=== PATIENT | female | born 1965 | race Caucasian/White ===

== ENCOUNTER 2017-10-22 14:07 | Emergency (ER) | payer SELFPAY ==
[~2017-10-22] VITALS: Ht 177.8 cm; Wt 71.0 kg
[~2017-10-22 14:07] MED LIST: ASCO100T4 PO; CHOL400T PO; GLUC1TAB8 PO; MULT-506 PO; OMEG10007 PO; PARO10TA PO; VITA1TAB4 PO
[2017-10-22 14:13] VITALS: TEMP 36.8; Ht 177.8 cm; Wt 71.0 kg
[2017-10-22] MEDS ORDERED: SODIUM CHLORIDE 0.9% 1000ML 2,000 ML IV STA (14:50)
[2017-10-22] MEDS ORDERED: DiphenhydrAMINE HCL 50 MG/ML VIAL IV STA (14:50)
[2017-10-22] MEDS ORDERED: PROCHLORPERAZINE 5 MG/ML 2 ML VIAL IV STA (14:50)
[2017-10-22] MEDS ORDERED: FAMOTIDINE 20 MG TAB PO ONE (15:00)
[2017-10-22 15:07] LABS: CALCIUM 9.2 mg/dl (8.5-10.1); CREATININE 0.92 mg/dl (0.60-1.20); POTASSIUM 3.5 mmol/L (3.5-5.1)
[2017-10-22 15:10] LABS: TOTAL PROTEIN 8.2 gm/dl (6.4-8.2)
--- NOTE | 2017-10-22 15:10 | DIAGNOSTIC IMAGING REPORT ---
CHEST ONE VIEW PORTABLE CLINICAL HISTORY: Abdominal pain. Hematemesis. COMPARISON STUDY: Chest radiograph July 2015. FINDINGS: Lung volumes are normal. No pneumothorax or pleural effusion is noted. There is no evidence for pulmonary edema. There is no consolidation. Cardiac size is normal. Mediastinal contours are normal. There is no lucency under the hemidiaphragms to indicate pneumoperitoneum on this exam. IMPRESSION: No acute cardiopulmonary findings. Electronically signed by: Cody Mackenzie M.D. 10/22/2017 3:09 PM Dictated Date/Time: 10/22/2017 3:08 PM
[2017-10-22 15:13] LABS: BASO % 0.1 %; BASO ABS # 0.01 K/uL (0-0.2); HEMATOCRIT 40.5 % (37-47); HEMOGLOBIN 13.8 g/dL (12.0-16.0); IG# 0.02 K/uL (0.00-0.02); LYMPH % 10.1 %; LYMPH ABS # 1.03 K/uL (1.2-3.4); MEAN CELL VOLUME 85.1 fL (80-100); MEAN CORPUSCULAR HGB CONC 34.1 g/dl (32-36); MEAN PLATELET VOLUME 9.5 fL (7.4-10.4); MONO % 3.8 %; MONO ABS # 0.39 K/uL (0.11-0.59); NEUT % 85.8 %; NEUT ABS # 8.75 K/uL (1.4-6.5); PLATELET COUNT 299 K/uL (130-400); RED CELL DISTRIBUTION WIDTH CV 13.6 % (11.5-14.5); RED CELL DISTRIBUTION WIDTH SD 42.2 fL (36.4-46.3)
[2017-10-22] MEDS ORDERED: MISCTAB26 PO (15:26)
[2017-10-22] MEDS ORDERED: ESCI10TA17 PO (15:26)
[2017-10-22] MEDS ORDERED: B-COTAB18 PO (15:26)
[2017-10-22] MEDS ORDERED: MULT-190 PO (15:26)
[2017-10-22] MEDS ORDERED: ASCO500T16 PO (15:26)
[2017-10-22] MEDS ORDERED: CHOLCAP5 PO (15:26)
[2017-10-22] MEDS ORDERED: ONDA4TAB10 SL (18:31)
[2017-10-22] MEDS ORDERED: FAMO20TA9 PO (18:31)
--- NOTE | 2017-10-22 18:35 | EMERGENCY ROOM VISIT NOTE ---
History Report prepared by Layne: Darby Calzada Under the Supervision of: Dr. Tod Dietrich M.D. First contact with patient: 14:46 Chief Complaint: GI ASSESSMENT Stated Complaint: VOMITTING BLOOD, BAD HEADACHE Nursing Triage Summary: Vomiting all day with severe migraine. Patient states she began vomiting blood "just a little blood in a tissue". Patient also complains of "the shakes". History of Present Illness The patient is a 52 year old female who presents to the Emergency Room with complaints of persistent vomiting starting 0400 today. She awoke at 0400 with a headache that progressed throughout the day. She then started vomiting and has continued to vomit all day. She then vomited some globs of blood which she has never experienced before. She has a history of headaches, but she has never had a headache like this before. The headache is in her whole head and her neck aches. She tried some of her mother's migraine medications to no significant relief. She reports that she has been shaking and twitching. She has a sore throat from vomiting. She has some abdominal pain. She has had intermittent diarrhea since taking an antibiotic for a sinus infection 6 weeks ago. She notes that she soiled herself yesterday at work. She had 4 bowel movements yesterday. She denies any black or bloody stool, cough, congestion, or SOB. She denies any history of liver disease or ulcers. She is not on any blood thinners. She currently works at a [employer]. She has a history of C diff but feels like this is not like her prior C. difficile. Source of History: patient Onset: 399 today Position: abdomen Quality: other (vomiting) Timing: other (persistent) Associated Symptoms: + headache, + sorethroat, + abdominal pain, + diarrhea , No cough, No SOB, No melena, No hematochezia Note: Pt reports bloody vomiting. Review of Systems See HPI for pertinent positives and negatives. A total of ten systems were reviewed and were otherwise negative. Past Medical & Surgical Medical Problems: (1) Bronchitis (2) Depression (3) Pneumonia (4) Septoplasty Family History Cancer Social History Smoking Status: Never Smoker Alcohol Use: none Marital Status: single Housing Status: lives with family Occupation Status: unemployed Current/Historical Medications Scheduled Ascorbic Acid (Ascorbic Acid), 500 MG PO DAILY B-Complex Vitamins (Vitamin B Complex), 1 TAB PO DAILY Cholecalciferol (Vitamin D3), 5,000 INTER.UNIT PO DAILY Escitalopram (Lexapro), 10 MG PO DAILY Glucosamine Hydrochloride (Glucosamine), 500 MG PO DAILY Misc Natural Products (Ginkgo Biloba), 1 TAB PO DAILY Multivitamin (Multivitamin), 1 TAB PO DAILY Ocuvite Preservision (Ocuvite Preservision), 1 TAB PO DAILY Ondasetron Odt (Zofran Odt), 4 MG SL Q6H Vitamin E (Vitamin E), 400 INTER.UNIT PO DAILY Scheduled PRN Famotidine (Pepcid), 20 MG PO BID PRN for GI Upset Allergies Coded Allergies: Sulfa Antibiotics (Unverified Allergy, Intermediate, RASH, 06/04/16) Sulfa Drugs (Verified Allergy, Unknown, 06/04/16) Amoxicillin (Verified Adverse Reaction, Unknown, GI symptoms, developed C- Diff, 10/22/17) Clavulanic Acid (Verified Adverse Reaction, Unknown, GI symptoms, developed C-Diff, 10/22/17) Physical Exam Vital Signs Date Time Temp Pulse Resp B/P (MAP) Pulse Ox O2 Delivery O2 Flow Rate FiO2 10/22/17 18:39 87 18 141/71 99 Room Air 10/22/17 18:00 91 16 146/74 98 Room Air 10/22/17 16:05 93 18 124/78 98 Room Air 10/22/17 15:18 88 10/22/17 14:13 36.8 105 18 165/108 100 Room Air Physical Exam GENERAL: Awake, alert, fatigued and uncomfortable-appearing, in no distress HENT: Normocephalic, atraumatic. Dry mucous membranes, otherwise oropharynx unremarkable. EYES: Normal conjunctiva. Sclera non-icteric. NECK: Supple. No nuchal rigidity. FROM. No JVD. RESPIRATORY: Clear to auscultation. CARDIAC: Regular rate, normal rhythm. Extremities warm and well perfused. Pulses equal. ABDOMEN: Soft, non-distended. No tenderness to palpation. No rebound or guarding. No masses. RECTAL: Deferred. MUSCULOSKELETAL: Chest examination reveals no tenderness. The back is symmetrical on inspection without obvious abnormality. There is no CVA tenderness to palpation. No joint edema. LOWER EXTREMITIES: Calves are equal size bilaterally and non-tender. No edema. No discoloration. NEURO: Normal sensorium. No sensory or motor deficits noted. SKIN: No rash or jaundice noted. Medical Decision & Procedures ER Provider Diagnostic Interpretation: Radiology results as stated below per my review and radiologist interpretation: CHEST ONE VIEW PORTABLE CLINICAL HISTORY: Abdominal pain. Hematemesis. COMPARISON STUDY: Chest radiograph July 2015. FINDINGS: Lung volumes are normal. No pneumothorax or pleural effusion is noted. There is no evidence for pulmonary edema. There is no consolidation. Cardiac size is normal. Mediastinal contours are normal. There is no lucency under the hemidiaphragms to indicate pneumoperitoneum on this exam. IMPRESSION: No acute cardiopulmonary findings. Electronically signed by: Cody Mackenzie M.D. 10/22/2017 3:09 PM Dictated Date/Time: 10/22/2017 3:08 PM Laboratory Results 10/22/17 14:00 Red Blood Count 4.76, Mean Corpuscular Volume 85.1, Mean Corpuscular Hemoglobin 29.0, Mean Corpuscular Hemoglobin Concent 34.1, Mean Platelet Volume 9.5, Neutrophils (%) (Auto) 85.8, Lymphocytes (%) (Auto) 10.1, Monocytes (%) (Auto) 3.8, Eosinophils (%) (Auto) 0.0, Basophils (%) (Auto) 0.1, Neutrophils # (Auto) 8.75, Lymphocytes # (Auto) 1.03, Monocytes # (Auto) 0.39, Eosinophils # (Auto) 0.00, Basophils # (Auto) 0.01 10/22/17 14:00 Test 10/22/17 14:00 10/22/17 14:15 White Blood Count 10.20 K/uL (4.8-10.8) Red Blood Count 4.76 M/uL (4.2-5.4) Hemoglobin 13.8 g/dL (12.0-16.0) Hematocrit 40.5 % (37-47) Mean Corpuscular Volume 85.1 fL (80-100) Mean Corpuscular Hemoglobin 29.0 pg (25-34) Mean Corpuscular Hemoglobin Concent 34.1 g/dl (32-36) Platelet Count 299 K/uL (130-400) Mean Platelet Volume 9.5 fL (7.4-10.4) Neutrophils (%) (Auto) 85.8 % Lymphocytes (%) (Auto) 10.1 % Monocytes (%) (Auto) 3.8 % Eosinophils (%) (Auto) 0.0 % Basophils (%) (Auto) 0.1 % Neutrophils # (Auto) 8.75 K/uL (1.4-6.5) Lymphocytes # (Auto) 1.03 K/uL (1.2-3.4) Monocytes # (Auto) 0.39 K/uL (0.11-0.59) Eosinophils # (Auto) 0.00 K/uL (0-0.5) Basophils # (Auto) 0.01 K/uL (0-0.2) RDW Standard Deviation 42.2 fL (36.4-46.3) RDW Coefficient of Variation 13.6 % (11.5-14.5) Immature Granulocyte % (Auto) 0.2 % Immature Granulocyte # (Auto) 0.02 K/uL (0.00-0.02) Anion Gap 9.0 mmol/L (3-11) Est Creatinine Clear Calc Drug Dose 75.6 ml/min Estimated GFR () 81.8 Estimated GFR (Non- 70.6 BUN/Creatinine Ratio 14.0 (10-20) Calcium Level 9.2 mg/dl (8.5-10.1) Total Bilirubin 0.9 mg/dl (0.2-1) Direct Bilirubin 0.2 mg/dl (0-0.2) Aspartate Amino Transf (AST/SGOT) 16 U/L (15-37) Alanine Aminotransferase (ALT/SGPT) 19 U/L (12-78) Alkaline Phosphatase 80 U/L (45-117) Total Protein 8.2 gm/dl (6.4-8.2) Albumin 4.0 gm/dl (3.4-5.0) Lipase 145 U/L (73-393) Urine Color DK YELLOW Urine Appearance CLEAR (CLEAR) Urine pH 6.5 (4.5-7.5) Urine Specific [place] 1.023 (1.000-1.030) Urine Protein NEG (NEG) Urine Glucose (UA) NEG (NEG) Urine Ketones 2+ (NEG) Urine Occult Blood NEG (NEG) Urine Nitrite NEG (NEG) Urine Bilirubin NEG (NEG) Urine Urobilinogen NEG (NEG) Urine Leukocyte Esterase TRACE (NEG) Urine WBC (Auto) 5-10 /hpf (0-5) Urine RBC (Auto) 0-4 /hpf (0-4) Urine Hyaline Casts (Auto) 5-10 /lpf (0-5) Urine Epithelial Cells (Auto) >30 /lpf (0-5) Urine Bacteria (Auto) NEG (NEG) Urine Renal Epithelial Cells /lpf (0-5) Laboratory results reviewed by me Medications Administered Medications (Trade) Dose Ordered Sig/Elaine Route Start Time Stop Time Status Last Admin Dose Admin Sodium Chloride 2,000 ml @ 999 mls/hr Q2H1M STAT IV 10/22/17 14:50 10/22/17 16:50 DC 10/22/17 14:50 999 MLS/HR Prochlorperazine Edisylate (Compazine Inj) 10 mg NOW STAT IV 10/22/17 14:50 10/22/17 14:54 DC 10/22/17 15:15 10 MG Diphenhydramine HCl (Benadryl Inj) 25 mg NOW STAT IV 10/22/17 14:50 10/22/17 14:54 DC 10/22/17 15:16 25 MG Famotidine (Pepcid Tab) 20 mg NOW ONCE PO 10/22/17 15:00 10/22/17 15:01 DC 10/22/17 15:15 20 MG Ondansetron HCl (ZOFRAN ODT 4MG Home Pack) 1 homepack STK-MED ONCE .ROUTE 10/22/17 18:37 10/22/17 18:38 DC 10/22/17 18:37 1 HOMEPACK ECG Per My Interpretation Indication: vomiting Rate (beats per minute): 87 Rhythm: normal sinus Findings: no acute ischemic change, other (normal axis) ED Course 1448: The patient was evaluated in room B4B. A complete history and physical exam was performed. 1822: I reevaluated the patient. She is feeling better. Discussed results and discharge instructions: She verbalized understanding and agreement. The patient is ready for discharge. Medical Decision I reviewed the patient's past medical history, medications, and the nursing notes as described above. Differential diagnosis: Etiologies such as migraine headache, meningitis, sinusitis, CO exposure, ICH, SAH, infection, tumor, headache, sinus thrombosis, arterial dissection, gastroenteritis, food borne illness, appendicitis, diverticulitis, inflammatory bowel disease, obstruction, GI bleed, biliary pathology, as well as others were entertained. The patient is a 52-year-old woman with a past medical history presents to the emergency department with progressive headache this morning and setting of intermittent diarrhea over the past several after being treated for a sinus infection per hpi. On arrival the patient is fatigued appearing but no acute distress, afebrile stable vital signs. She is neurologically intact including normal cerebellar function with [id number], alternating palms, heel-to- banegas. EKG unremarkable. WBC within normal limits. Bicarbonate 20 consistent with mild dehydration. Labs otherwise unremarkable. UA negative for infection Patient denies any urinary symptoms. C. difficile ordered however patient has not any bowel movement emergency department. Patient with complete resolution of symptoms after IV fluids, Benadryl, Compazine, Zofran, Pepcid. Given the patient's resolution of symptoms as well as headache which was progressive patient's presentation is not c/w SAH and therefore brain imaging not indicated at this time. Symptoms most likely related to viral gastroenteritis. However given the patient's recent antibiotics given specimen cup to bring to her doctor with subsequent diarrhea for cdiff testing. However given WBC wnl, cdiff not likely. Findings and plan for follow-up reviewed with patient. Patient agreeable and d/c'd per discharge instructions. Medication Reconcilliation Current Medication List: was personally reviewed by me Blood Pressure Screening Patient's blood pressure: Elevated blood pressure Blood pressure disposition: Elevated BP felt to be situational Impression Primary Impression: Acute gastroenteritis Additional Impressions: Migraine Dehydration Scribe Attestation The scribe's documentation has been prepared under my direction and personally reviewed by me in its entirety. I confirm that the note above accurately reflects all work, treatment, procedures, and medical decision making performed by me. Departure Information Dispostion Home / Self-Care Prescriptions Ondasetron Odt (ZOFRAN ODT) 4 Mg Tab 4 MG SL Q6H for Nausea, #10 TAB Prov: Tod Dietrich M.D. 10/22/17 Famotidine (PEPCID) 20 Mg Tab 20 MG PO BID Y for GI Upset for 7 Days, #14 TAB Prov: Tod Dietrich M.D. 10/22/17 Referrals Janelle Leyva DO (PCP) Patient Instructions ED Dehydration, ED Gastroenteritis Viral, ED Headache Migraine, My [facility] Additional Instructions Please follow up with your primary care physician in the next 1-3 days for re- evaluation. You likely a viral GI illness which likely led to mild dehydration and headache/ migraine. Otherwise, your exam and lab results did not show signs of an emergent condition at this time. Acetaminophen or ibuprofen for pain and fevers as needed. Zofran as needed for nausea. Pepcid as needed for GI upset/acid reduction. Drink plenty of fluids to ensure hydration. Return to the emergency department for worsening symptoms as described in the accompanying instructions. Problem Qualifiers
[2017-10-22] MEDS ORDERED: ONDANSETRON HOME PACK 4MG OD TAB ONE (18:37)
[2017-10-22 18:39] VITALS: BP 141/71; PULSE 87; O2SAT 99
[2017-10-22] MEDS ORDERED: ONDANSETRON HOME PACK 4MG OD TAB PO ONE (18:45)
== END 2017-10-22 18:51 | disposition home or self-care (01) ==
LOC: C.EDB 14:08
DX: K52.9 Noninfective gastroenteritis and colitis, unspecified (principal); G43.909 Migraine, unspecified, not intractable, without status migrainosus; E86.0 Dehydration; Z88.2 Allergy status to sulfonamides; Z88.1 Allergy status to other antibiotic agents; Z88.8 Allergy status to other drugs, medicaments and biological substances

== ENCOUNTER 2022-05-04 07:30 | Observation (INO) ==
--- NOTE | 2022-04-29 10:06 | Anesthesiology Consultation ---
Date of Service April 29, 2022 Assessment & Plan (1) Encounter for pre-operative examination: - right arm restriction. - ER [facility] 04/18/22: "...anxiety, recent diagnosis of breast cancer for which she is undergoing planning for mastectomy and subsequent radiation/chemotherapy who presents to the emergency department by family for episodes of syncope which occurred this morning where she fell onto the bed and was not responding...then having intermittent jerking of her muscles which she has not done before. Denies any recent fevers, chills, cough or congestion, GI or symptoms...was complaining of a headache...increased anxiety regarding her recent diagnosis and recently had her sertraline increased...also took her mother's migraine medicine this morning thinking this would help her headache...On arrival the patient is anxious appearing but no acute distress, afebrile, BP 150s/90s and otherwise with stable vital signs. She appears clinically dry...intermittent myoclonic jerking which resolved upon distraction. She has no focal neurologic deficits and is moving all extremities equally. EKG without overt acute ischemia. Chest x-ray negative for acute cardiopulmonary process. WBC, H/H and platelets within normal limits. Chemistry without metabolic acidosis. Electrolytes and FTs without significant normality. BUN/creatinine> 20 consistent with patient's clinically dry appearance. CPK within normal limits. TSH within normal limits. UA without convincing evidence of infection. COVID-19 RNA, BIN test was negative. CT of the head was negative for acute abnormalities. Upon reevaluation the patient was feeling improved following IV fluid hydration, APAP , dexamethasone for treatment of migraine and Ativan. Given her improvement reassuring evaluation suspect symptoms are related to underlying anxiety as well as a component of dehydration and migraine..." - Case discussed with Dr. Buckley who advised pt acceptable to proceed. - COVID screening: Per curriculum and assessment director on 04/29/2022: Travel screen negative, no known COVID-19 positive contacts or current COVID-19 related symptoms in past 2 weeks. To surgeon's discretion if preop COVID testing is needed. Chart Review Chart Review: Acceptable Risk for Surgery and Patient NOT seen in Pre Admission Testing History Surgery Operation Date: 05/04/22 13:25 Proposed Procedures p Right Breast Mastectomy with Right [place] Lymph Node Biopsy - Lauri Brenner MD Height/Weight Height: 5 ft 9 in Weight: 73.482 kg Allergies Allergy/AdvReac Type Severity Reaction Status Date / Time nickel Allergy Severe wounds/boils/skin Verified 04/29/22 07:50 breakdown Sulfa (Sulfonamide Allergy Intermediate RASH Verified 04/29/22 07:30 Antibiotics) amoxicillin AdvReac Unknown GI Verified 04/29/22 07:30 symptoms, developed C-Diff clavulanic acid AdvReac Unknown GI Verified 04/29/22 07:30 symptoms, developed C-Diff Medications Home Medications Medication Instructions Recorded Confirmed Last Taken ascorbic acid (vitamin C) 500 mg 500 mg PO QAM 11/09/18 04/29/22 11/09/18 tablet vitamins A,C,K-jzta-cytxam 2,148 1 tab PO QAM 11/09/18 04/29/22 11/09/18 mcg-113 mg-45 mg-17.4 mg tablet (PreserVision AREDS) cholecalciferol (vitamin D3) 50 50 mcg PO QAM 04/18/22 04/29/22 Unknown mcg (2,000 unit) capsule (Vitamin D3) sumatriptan succinate 100 mg tablet 50 mg PO DIRECTED PRN Migraine 04/18/22 04/29/22 Unknown Headache atorvastatin 20 mg tablet 20 mg PO HS 04/29/22 04/29/22 Unknown fluoxetine 40 mg capsule (Prozac) 40 mg PO QAM 04/29/22 04/29/22 Unknown hydroxyzine HCl 50 mg tablet 50 mg PO HS 04/29/22 04/29/22 Unknown levothyroxine 88 mcg tablet 88 mcg PO QAM 04/29/22 04/29/22 Unknown melatonin 5 mg tablet 5 mg PO HS 04/29/22 04/29/22 Unknown Past Medical History Medical History (Updated 04/29/22 @ 09:56 by Shannan Ortega PA-C) Anxiety severe anxiety -- was seen in the [facility] ER on 04/18 for a possible seizure -- diagnosed with severe anxiety Depression Dyslipidemia GERD (gastroesophageal reflux disease) Iain's disease follows with PCP, history of following with [facility] -- in the process of switching to a new PCP (Tiffanie Simeon) 04/28/22 TSH: 2.29 History of breast cancer March 2016. Right breast lumpectomy with lymph node removal - no chemotherapy, no radiation. Migraine Past Family History Family History Family/Other Hearing loss Cancer Other No family history of adverse response to anesthesia No family history of bleeding disorder Past Surgical History Surgical History History of colonoscopy History of endometrial ablation History of laparoscopy History of lumpectomy of right breast History of lymph node dissection of right axilla History of nasal septoplasty History of surgical removal of ganglion cyst Social History Smoking Status: Never smoker Do You Dip or Chew Tobacco: No Hx Alcohol Use: No Alcohol type: hard liquor Hx Substance Use: No Lab Results Anesthesia Preop Results Results Anesthesia Widget: WBC 7.55 K/ul (4.8-10.8) 04/18/22 Hgb 14.1 g/dl (12.0-16.0) 04/18/22 Hct 41.5 % (34.1-44.9) 04/18/22 Plt 262 K/uL (130-400) 04/18/22 Na 139 mmol/L (136-145) 04/18/22 K 4.4 mmol/L (3.5-5.1) 04/18/22 Cl 108 mmol/L (98-107) H 04/18/22 CO2 24 mmol/L (21-32) 04/18/22 BUN 23 mg/dl (6-23) 04/18/22 Creat 0.93 mg/dl (0.6-1.2) 04/18/22 Glucose Level 94 mg/dl (70-99(Fasting)) 04/18/22 TSH 2.611 uIu/ml (0.300-4.500) 04/18/22 Urine Color Yellow 04/18/22 Urine Appearance Clear (Clear) 04/18/22 Urine pH 7.5 (4.5-7.5) 04/18/22 Urine Specific [place] 1.012 (1.000-1.030) 04/18/22 Urine Protein Negative (Negative) 04/18/22 Urine Glucose (UA) Negative (Negative) 04/18/22 Urine Ketones Negative (Negative) 04/18/22 Urine Blood Negative (Negative) 04/18/22 Urine Nitrite Negative (Negative) 04/18/22 Urine Bilirubin Negative (Negative) 04/18/22 Urine Urobilinogen Negative (Negative) 04/18/22 Urine Leukocyte Esterase Trace (Negative) H 04/18/22 Urine WBC (Auto) 1-5 /hpf (0-5) 04/18/22 Urine RBC (Auto) 0-4 /hpf (0-4) 04/18/22 Urine Hyaline Casts (Auto) 0 /lpf (0-5) 04/18/22 Urine Epithelial Cells (Auto) 0-5 /lpf (0-5) 04/18/22 Urine Bacteria (Auto) Negative (Negative) 04/18/22 SARS-CoV-2, RNA, NAAT NEGATIVE (NEGATIVE) 04/18/22 Testing Electrocardiogram Date: 04/18/22 NSR, rate 85 bpm Prolonged QT Chest X-Ray Date: 04/18/22 *1view* Cardiomediastinal and hilar silhouettes are within normal limits. No pneumothorax, pleural effusion, airspace consolidation or overt pulmonary edema. Bones of the chest appear grossly intact. IMPRESSION: No acute process. Other Testing Head CT 04/18/22 No acute intracranial abnormality.
[~2022-05-04 07:30] MED LIST changes: -ASCO100T4 PO; -CHOL400T PO; +ENOXAPARIN INJ 30 MG/0.3 ML SYR SQ SCH; -GLUC1TAB8 PO; +LR 15ML/HR IV SCH; -MULT-506 PO; -OMEG10007 PO; -PARO10TA PO; -VITA1TAB4 PO; +ceFAZolin 2000MG 2,000 MG/15 ML SYR IV SCH
--- NOTE | 2022-05-04 09:12 | Nuclear Medicine Report ---
LYMPHOSCINTIGRAPHY CLINICAL HISTORY: Right breast cancer. PROCEDURE: Using standard sterile technique, 4 intradermal and one deep injection of 0.5 mCi of Lymph oseek was placed in the right breast. The patient tolerated the procedure well. There were no immedia te complications. The patient was subsequently transported to the surgical suite. No imaging was obta ined at the referring physician's request. IMPRESSION: Injection of 0.5 mCi of Lymphoseek in the right breast. ACT 112: Negative or not required by law. Electronically signed by: Lev Machado M.D. 05/04/2022 9:11 AM
[2022-05-04] MEDS ORDERED: LIDOCAINE 2% MPF LOCAL 5 ML VIAL INFIL ONE (10:17)
[2022-05-04] MEDS ORDERED: PROPOFOL IV EMULSION 10 MG/ML 20 ML VIAL IV ONE ×2 (10:17→23:42)
[2022-05-04] MEDS ORDERED: MIDAZOLAM HCL 1 MG/ML 2ML VIAL ONE ×2 (10:17→11:56)
[2022-05-04] MEDS ORDERED: fentaNYL citrate 100 MCG/2 ML VIAL ONE ×2 (10:17→23:22)
[2022-05-04] MEDS ORDERED: ROCURONIUM BROMIDE 10 MG/ML 5 ML VIAL IV ONE (10:19)
--- NOTE | 2022-05-04 11:23 | History & Physical Bridge Note ---
Date of Service May 04, 2022 History & Physical Bridge Note I have examined the patient, reviewed the History & Physical and in the interval since the performance of the History & Physical I have noted the following changes of clinical significance: no changes noted
[2022-05-04] MEDS ORDERED: EPINEPHrine INJ 1 MG/ML AMP ONE ×2 (11:47→12:32)
[2022-05-04] MEDS ORDERED: LIDOCAINE 1% LOCAL 20 ML VIAL ONE ×2 (11:47→12:32)
[2022-05-04] MEDS ORDERED: ONDANSETRON INJ 2 MG/ML 2 ML VIAL ONE ×2 (11:48→23:42)
[2022-05-04] MEDS ORDERED: FLUMAZENIL 0.1 MG/1 ML 10 ML VIAL IV PRN (11:55)
[2022-05-04] MEDS ORDERED: ePHEDrine sulfate 50 MG/ML AMP IV PRN ×2 (11:55→23:14)
[2022-05-04] MEDS ORDERED: PROMETHAZINE HCL 12.5 MG in SODIUM CHLORIDE 0.9% 50 ML IV PRN ×2 (11:55→15:23)
[2022-05-04] MEDS ORDERED: HYDROmorphone INJ 1 MG/ML SYRINGE IV PRN ×2 (11:55→23:14)
[2022-05-04] MEDS ORDERED: ONDANSETRON INJ 2 MG/ML 2 ML VIAL IV PRN ×3 (11:55→23:14)
[2022-05-04] MEDS ORDERED: ATROPINE SULFATE 0.1 MG/ML 10ML SYR IV PRN ×2 (11:55→23:14)
[2022-05-04] MEDS ORDERED: LABETALOL HCL IV 5 MG/ML 20ML IV PRN ×2 (11:55→23:14)
[2022-05-04] MEDS ORDERED: NALOXONE HCL 0.4 MG/1 ML VIAL/CARP IV PRN (11:55)
--- NOTE | 2022-05-04 13:52 | Post Operative Brief Note ---
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
--- NOTE | 2022-05-04 13:58 | Operative Report ---
Post Operative Report Pre & Post Diagnosis Operation Date: 05/04/22 11:40 Pre-Op Diagnosis: Infiltrating Ductal Carcinoma of Breast, Right Post-Op Diagnosis: Infiltrating Ductal Carcinoma of Breast, Right I identified the patient and participated in the time-out.: Yes Procedure Operation Date: 05/04/22 11:40 Actual Procedures p Right Breast Mastectomy with Right [place] Lymph Node Biopsy(Right) - Lauri Brenner MD Surgeon Lauri Brenner MD Remelt Pan Tank Operator JOEY Vigil assisted with tissue retraction, camera op, closure Estimated Blood Loss 10 Findings Consistent with Post-Op Diagnosis 1 sentinel node was identified, hot; background radiation less than 5% of the sentinel node Right breast mastectomy specimen encompassing the old incision from the prior surgery Specimens [place] lymph node - hot - 415 count right breast mastectomy Drains 10 Yi flat Anesthesia Type General Complications No immediate complications Description of Procedure The patient is taken to the operating room, placed supine on the operating table. A timeout was performed, perioperative antibiotics were administered, SCD boots were placed. After adequate anesthesia and analgesia was obtained, the right chest was prepped and draped in the normal sterile fashion. Elliptical incision was drawn out encompassing the right breast, nipple areolar complex, old incision site. This was extended into the axilla. The sentinel lymph node was identified through the skin with the neoprobe. Local anesthetic was injected into around the right breast and axilla. Incision was made with 15 blade scalpel and carried into the level of subcutaneous tissue down to the interface of the breast tissue. We began in the axilla. Flap was raised into the axilla, and the neoprobe was used to identify the sentinel lymph node. [place] node was dissected free circumferentially. The lymphatics were clamped and tied. The sentinel node measured at count of 415. The background radiation was less than 5% of this at 15. Attention was then turned to the mastectomy itself. The breast was dissected free from the overlying subcutaneous tissue and skin with a traction countertraction technique using the Bovie electrocautery. The limits of the dissection were the clavicle superiorly, the sternum medially, the rectus abdominis fascia inferiorly, and the axillary fat pad laterally. Small perforators were clamped and tied with 3-0 silk suture. The breast was then removed from the underlying pectoralis major muscle, taking care to remove the pectoralis fascia with the specimen, with the Bovie elec trocautery. The right breast was marked with sutures and ink and was sent off field for specimen. Small amount of additional breast tissue was removed from the upper flap with the electrocautery and sent with the specimen. We turned our attention to hemostasis. Small bleeders were treated with the Bovie or clamped and tied with silk suture. The wound was copiously irrigated and suctioned free and again hemostasis was checked and was excellent. A 10 Yi flat LUCAS drain was placed through separate stab incision and was secured into position with a 2-0 nylon suture. The subcutaneous tissue was reapproximated with interrupted 3-0 Vicryl sutures. The skin was closed with a running 4-0 Monocryl subcuticular stitch. Benzoin and Steri-Strips were applied. Dressings were applied. She tolerated the procedure without complication, was transferred in stable condition to the PACU. All instrument, needle, and sponge counts were correct at the end of the case. My front end assistant was necessary throughout the procedure for tissue retraction, possible camera operation, and closure of the wounds. I understand that section 1842(b)(7)(D) of the Social Security act generally prohibits Medicare physician fee schedule payment for the services of assistants at surgery in teaching hospitals when qualified residents are available to furnish such services. I certify that the services for which payment is claimed were medically necessary and that no qualified resident was available to perform the services. I further understand that these services are subject to postpayment review by the Medicare carrier. I attest to the content of the Intraoperative Record and any orders documented therein. Any exceptions are noted below.
[2022-05-04] MEDS: fentaNYL citrate 100 MCG/2 ML VIAL IV PRN ×4 (14:15→14:30)
--- NOTE | 2022-05-04 14:43 | Anesthesiology Progress Note ---
Date of Service May 04, 2022 Anesthesia Post Procedure Vital Signs Vital Signs: Temp Pulse Resp BP Pulse Ox O2 Del Method O2 Flow Rate 05/04/22 14:35 36.6 C 101 H 13 174/96 H 97 Room Air 05/04/22 14:25 107 H 24 162/88 H 100 Oxymask 4 05/04/22 14:15 99 H 17 125/79 97 Oxymask 6 05/04/22 14:09 36.3 C L 98 H 18 143/71 H 98 Oxymask 6 05/04/22 09:58 36.7 C 85 20 152/86 H 98 Room Air Pain Intensity Right Breast: Pain Intensity: 5 Transfer of Care Handoff Completed per policy Notes Mental Status: alert / awake / arousable Patient Amnestic to Procedure: Yes Nausea / Vomiting: adequately controlled Pain: adequately controlled Airway Patency, RR, SpO2: stable & adequate BP & HR: stable & adequate Hydration State: stable & adequate Anesthetic Complications: no major complications apparent
[2022-05-04] MEDS ORDERED: LORazepam 0.5 MG in SYRINGE 0 ML IV PRN (14:54)
[2022-05-04] MEDS ORDERED: diphenhydrAMINE Capsule 25 MG CAP PO PRN (15:23)
[2022-05-04] MEDS ORDERED: ACETAMINOPHEN 325 MG TAB PO PRN (15:23)
[2022-05-04] MEDS ORDERED: LACTATED RINGER'S 1,000 ML IV SCH (15:23)
[2022-05-04] MEDS: MoRPHine SULFATE 2 MG/ML CARP IV PRN ×2 (15:34→21:28)
[2022-05-04] MEDS: oxyCODONE/ACETAMINOPHEN 5mg/325mg TAB PO PRN (17:42)
[2022-05-04] MEDS: ATORVASTATIN 20 MG TAB PO SCH (21:28)
[2022-05-04] MEDS ORDERED: LACTATED RINGER'S 500 ML IV ONE (21:52)
--- NOTE | 2022-05-04 22:00 | Surgery Progress Note ---
Date of Service May 04, 2022 Assessment & Plan (1) Hematoma: Plan: Patient status post right mastectomy Now has significant swelling and tenseness of the right chest wall with ecchymosis Likely hematoma Will check stat H&H and type and screen patient Give her 500 cc bolus of lactated Ringer's Will discuss case with Dr. Brenner Admission and Anticipated Discharge Date Admission Date: May 04, 2022 Subjective Called by the nurse for increasing pain in the right chest Patient with significant swelling and tenderness Blood pressures in the 80s systolic Physical Exam Physical Exam: Patient with very tense right chest extending into the right axilla status post mastectomy- Ecchymosis Very tender Results & Data ([facility]) Vital Signs (Past 12 Hours) Vital Signs Temp Pulse Pulse Resp BP Pulse Ox O2 Del Method 05/04/22 21:43 36.6 C 73 18 81/54 L 97 Room Air 05/04/22 19:34 36.9 C 90 16 88/57 L 97 Room Air 05/04/22 18:20 37.1 C 83 16 131/78 97 Room Air 05/04/22 17:35 37 C 81 16 130/77 95 Room Air 05/04/22 16:19 37.1 C 85 20 131/75 96 Room Air 05/04/22 15:56 37 C 89 18 133/73 97 Room Air 05/04/22 15:20 37.0 C 86 22 134/82 98 Room Air 05/04/22 15:05 98 H 14 147/79 H 97 Room Air 05/04/22 14:55 94 H 13 157/84 H 95 Room Air 05/04/22 14:45 98 H 14 160/84 H 95 Room Air 05/04/22 14:35 36.6 C 101 H 13 174/96 H 97 Room Air 05/04/22 14:25 107 H 24 162/88 H 100 Oxymask 05/04/22 14:15 99 H 17 125/79 97 Oxymask 05/04/22 14:09 36.3 C L 98 H 18 143/71 H 98 Oxymask 05/04/22 09:58 36.7 C 85 20 152/86 H 98 Room Air O2 Flow Rate 05/04/22 21:43 05/04/22 19:34 05/04/22 18:20 05/04/22 17:35 05/04/22 16:19 05/04/22 15:56 05/04/22 15:20 05/04/22 15:05 05/04/22 14:55 05/04/22 14:45 05/04/22 14:35 05/04/22 14:25 4 05/04/22 14:15 6 05/04/22 14:09 6 05/04/22 09:58 PG Care Time/CCT Total # of Minutes Spent Total Time Spent with Patient: Total time spent is greater than 50% in coordination of care (as documented) at patient's floor/unit and/or counseling patient: Coding Level of Care Code None Diagnoses Hematoma T14.8XXA
[2022-05-04 22:06] LABS: Hematocrit (blood only) 35.2 % (34.1-44.9); Hemoglobin 11.8 g/dl (12.0-16.0)
--- NOTE | 2022-05-04 22:47 | Surgery Progress Note ---
Date of Service May 04, 2022 Assessment & Plan (1) Breast cancer, right: (2) Hematoma: Plan She is postop day 0 status post right breast mastectomy with sentinel lymph node biopsy. She has developed a large tense hematoma of the right breast following the surgery. Pressures have decreased to 80s over 50s. I discussed with her the need to take her back to the operating room and washout the hematoma and stop the bleeding. All her questions were answered, she is agreeable to proceed with this. We will obtain consent from her and take her to the operating room at the earliest convenience. Admission and Anticipated Discharge Date Admission Date: May 04, 2022 Subjective Called to see patient due to increased swelling and pain in the right breast. This woke her up from sleep. Her blood pressures have decreased from the 130s to the 80s. She is receiving a bolus of fluid, and her blood pressure is now 100/70. She continues to have significant pain in the right chest. Physical Exam Physical Exam: Large right chest hematoma, ecchymosis, tense, tender to palpation Results & Data ([facility]) Vital Signs (Past 12 Hours) Vital Signs Temp Pulse Pulse Resp BP Pulse Ox O2 Del Method 05/04/22 22:27 81 18 108/71 05/04/22 21:45 71 16 91/61 L 100 Room Air 05/04/22 21:43 36.6 C 73 18 81/54 L 97 Room Air 05/04/22 19:34 36.9 C 90 16 88/57 L 97 Room Air 05/04/22 18:20 37.1 C 83 16 131/78 97 Room Air 05/04/22 17:35 37 C 81 16 130/77 95 Room Air 05/04/22 16:19 37.1 C 85 20 131/75 96 Room Air 05/04/22 15:56 37 C 89 18 133/73 97 Room Air 05/04/22 15:20 37.0 C 86 22 134/82 98 Room Air 05/04/22 15:05 98 H 14 147/79 H 97 Room Air 05/04/22 14:55 94 H 13 157/84 H 95 Room Air 05/04/22 14:45 98 H 14 160/84 H 95 Room Air 05/04/22 14:35 36.6 C 101 H 13 174/96 H 97 Room Air 05/04/22 14:25 107 H 24 162/88 H 100 Oxymask 05/04/22 14:15 99 H 17 125/79 97 Oxymask 05/04/22 14:09 36.3 C L 98 H 18 143/71 H 98 Oxymask O2 Flow Rate 05/04/22 22:27 05/04/22 21:45 05/04/22 21:43 05/04/22 19:34 05/04/22 18:20 05/04/22 17:35 05/04/22 16:19 05/04/22 15:56 05/04/22 15:20 05/04/22 15:05 05/04/22 14:55 05/04/22 14:45 05/04/22 14:35 05/04/22 14:25 4 05/04/22 14:15 6 05/04/22 14:09 6
[2022-05-04] MEDS ORDERED: fentaNYL citrate 100 MCG/2 ML VIAL IV PRN (23:14)
[2022-05-04] MEDS ORDERED: PHENYLEPHRINE 100MCG/ML 5ML SYR IV PRN (23:14)
--- NOTE | 2022-05-04 23:15 | Anesthesiology Consultation ---
Date of Service May 04, 2022 Assessment & Plan (1) Encounter for pre-operative examination: Chart Review Chart Review: Acceptable Risk for Surgery and Patient NOT seen in Pre Admission Testing Consults Requested none History Surgery Operation Date: 05/04/22 11:40 Proposed Procedures p Right Breast Mastectomy with Right [place] Lymph Node Biopsy - Lauri Brenner MD Operation Date: 05/04/22 22:30 Proposed Procedures p Washout post right mastectomy(Right) - Lauri Brenner MD Height/Weight Height: 5 ft 9 in Weight: 74.8 kg Allergies Allergy/AdvReac Type Severity Reaction Status Date / Time nickel Allergy Severe wounds/boils/skin Verified 05/04/22 10:21 breakdown Sulfa (Sulfonamide Allergy Intermediate RASH Verified 05/04/22 10:21 Antibiotics) amoxicillin AdvReac Unknown GI Verified 05/04/22 10:21 symptoms, developed C-Diff clavulanic acid AdvReac Unknown GI Verified 05/04/22 10:21 symptoms, developed C-Diff Medications Home Medications Medication Instructions Recorded Confirmed Last Taken ascorbic acid (vitamin C) 500 mg 500 mg PO QAM 11/09/18 05/04/22 05/03/22 19:00 tablet vitamins A,C,F-lpnr-tuumqp 2,148 1 tab PO QAM 11/09/18 05/04/22 05/02/22 mcg-113 mg-45 mg-17.4 mg tablet (PreserVision AREDS) cholecalciferol (vitamin D3) 50 50 mcg PO QAM 04/18/22 05/04/22 05/02/22 mcg (2,000 unit) capsule (Vitamin D3) sumatriptan succinate 100 mg tablet 50 mg PO DIRECTED PRN Migraine 04/18/22 1 07/04/21 2 Weeks Ago Headache ~04/20/22 atorvastatin 20 mg tablet 20 mg PO HS 04/29/22 05/04/22 05/03/22 19:00 fluoxetine 40 mg capsule (Prozac) 40 mg PO QAM 04/29/22 05/04/22 05/04/22 03:00 hydroxyzine HCl 50 mg tablet 50 mg PO HS 04/29/22 05/04/22 05/03/22 19:00 levothyroxine 88 mcg tablet 88 mcg PO QAM 04/29/22 05/04/22 05/04/22 03:00 melatonin 5 mg tablet 5 mg PO HS 04/29/22 05/04/22 05/03/22 19:00 lorazepam 0.5 mg tablet 0.5 mg PO DAILY PRN Anxiety 05/04/22 05/04/22 05/03/22 19:00 multivitamin 1 tab PO DAILY 05/04/22 05/04/22 05/02/22 Active Medications Generic Name Dose Route Start Last Admin Trade Name Freq PRN Reason Stop Dose Admin Atorvastatin Calcium 20 mg 05/04/22 21:00 05/04/22 21:28 Atorvastatin 20 Mg Tab PO 06/03/22 20:59 Not Given HS RIMMA Lactated Ringer's 1,000 mls @ 15 mls/hr 05/04/22 06:00 05/04/22 17:38 Lr IV 05/05/22 05:59 Infused .Q24H RIMMA Infusion Lorazepam 0.5 mg/ Syringe 0.5 mls @ 2 mls/min 05/04/22 14:54 05/04/22 15:03 IV 06/03/22 14:53 2 mls/min Q6H PRN Administration Anxiety Lactated Ringer's 1,000 mls @ 50 mls/hr 05/04/22 15:23 05/04/22 15:34 Lr IV 06/03/22 15:22 50 mls/hr .Q20H RIMMA Administration Morphine Sulfate 2 mg 05/04/22 15:23 05/04/22 21:28 Morphine Sulfate 2 Mg/Ml Carp IV 05/18/22 15:22 2 mg Q3H PRN Administration Pain (1,2,3,4,5) & Pre PT Oxycodone/Acetaminophen 1 tab 05/04/22 15:23 05/04/22 17:42 Oxycodone/Acetaminophen 5mg/325mg Tab PO 05/18/22 15:22 1 tab Q4H PRN Administration MODERATE Pain (4,5,6) & Pre PT NPO Date Last Intake of Fluids: 05/04/22 Time Last Intake of Fluids: 21:30 Last Intake of Fluids Comment: sips of water Date Last Intake of Solids: 05/04/22 Time Last Intake of Solids: 17:30 Last Intake of Solids Comment: a couple bites of dinner Past Medical History Medical History Anxiety severe anxiety -- was seen in the [facility] ER on 04/18 for a possible seizure -- diagnosed with severe anxiety Depression Dyslipidemia GERD (gastroesophageal reflux disease) Iain's disease follows with PCP, history of following with [facility] -- in the process of switching to a new PCP (Tiffanie Simeon) 04/28/22 TSH: 2.29 History of breast cancer March 2016. Right breast lumpectomy with lymph node removal - no chemotherapy, no radiation. Migraine Past Family History Family History Family/Other Hearing loss Cancer Other No family history of adverse response to anesthesia No family history of bleeding disorder Past Surgical History Surgical History History of colonoscopy History of endometrial ablation History of laparoscopy History of lumpectomy of right breast History of lymph node dissection of right axilla History of nasal septoplasty History of surgical removal of ganglion cyst Social History Smoking Status: Never smoker Do You Dip or Chew Tobacco: No Hx Alcohol Use: No Alcohol type: hard liquor Hx Substance Use: No Physical Exam Vital Signs Last Vital Signs Temp 36.6 C 05/04/22 21:43 Pulse 81 05/04/22 22:27 Resp 18 05/04/22 22:27 BP 108/71 05/04/22 22:27 Pulse Ox 100 05/04/22 21:45 O2 Del Method 05/04/22 21:45 O2 Flow Rate 4 05/04/22 14:25 Testing Laboratory Results 05/04/22 21:55 Electrocardiogram Date: 04/18/22 NSR, rate 85 bpm Prolonged QT Chest X-Ray Date: 04/18/22 *1view* Cardiomediastinal and hilar silhouettes are within normal limits. No pneumothorax, pleural effusion, airspace consolidation or overt pulmonary edema. Bones of the chest appear grossly intact. IMPRESSION: No acute process. Other Testing Head CT 04/18/22 No acute intracranial abnormality.
[2022-05-04] MEDS ORDERED: BUPIVACAINE/EPINEPHRINE 0.25% 1:200,000 30 ML VIAL ONE (23:29)
[2022-05-04] MEDS ORDERED: DEXAMETHASONE SOD INJ 4 MG/ML VIAL ONE (23:41)
[2022-05-04] MEDS ORDERED: LIDOCAINE 2% 2 ML VIAL/AMP(20MG/ML) INFIL ONE (23:42)
[2022-05-04] MEDS ORDERED: FLOSEAL HEMOSTATIC MATRIX 10ML TOP ONE (23:56)
[2022-05-05] MEDS ORDERED: ceFAZolin 2000MG 2,000 MG/15 ML SYR IV ONE (00:02)
--- NOTE | 2022-05-05 01:07 | Post Operative Brief Note ---
Immediate Post Op Note v1 Date of Surgery May 05, 2022 Pre & Post Diagnosis Operation Date: 05/04/22 11:40 Pre-Op Diagnosis: Infiltrating Ductal Carcinoma of Breast, Right Post-Op Diagnosis: Infiltrating Ductal Carcinoma of Breast, Right Operation Date: 05/04/22 22:30 Pre-Op Diagnosis: Right Breast Hematoma Post-Op Diagnosis: Right Breast Hematoma I identified the patient and participated in the time-out.: Yes Procedure Operation Date: 05/04/22 22:30 Actual Procedures p Washout Right Breast Post Right Mastectomy(Right) - Lauri Brenner MD Surgeon Lauri Brenner MD Sports Management Intern none Estimated Blood Loss 50 Findings Consistent with Post-Op Diagnosis Drains Chavo-Prabhakar Drain (15Fr Round) Anesthesia Type General
--- NOTE | 2022-05-05 01:13 | Operative Report ---
Post Operative Report Pre & Post Diagnosis Operation Date: 05/04/22 11:40 Pre-Op Diagnosis: Infiltrating Ductal Carcinoma of Breast, Right Post-Op Diagnosis: Infiltrating Ductal Carcinoma of Breast, Right Operation Date: 05/04/22 22:30 Pre-Op Diagnosis: Right Breast Hematoma Post-Op Diagnosis: Right Breast Hematoma I identified the patient and participated in the time-out.: Yes Procedure Operation Date: 05/04/22 11:40 Actual Procedures p Right Breast Mastectomy with Right [place] Lymph Node Biopsy(Right) - Lauri Brenner MD Operation Date: 05/04/22 22:30 Actual Procedures p Washout Right Breast Post Right Mastectomy(Right) - Lauri Brenner MD Surgeon Lauri Brenner MD Car Framer none Estimated Blood Loss 50 Findings Consistent with Post-Op Diagnosis Bleeding from a small pectoralis major perforating branch arterial. Controlled with suture ligature. Specimens None Drains 15 [place] round LUCAS drain Anesthesia Type General Complications No immediate complications Description of Procedure Patient was taken to the operating room, placed supine on the operating table. A timeout was performed, perioperative antibiotics were administered, SCD boots were placed. After adequate anesthesia and analgesia was obtained, the right chest wall was prepped and draped in the normal sterile fashion. The original drain was removed. Incision was reopened to its fullest extent. A very large amounts of liquid and coagulated blood was evacuated. Some oozing from the pectoralis major muscle and the upper flap was controlled with electrocautery and 3-0 silk ties. Further exploration yielded a small medial pectoralis major perforating arterial there was actively bleeding. This was controlled with a suture ligature. The remainder of the surfaces were inspected and explored. No further bleeding was noted. The entire wound was copiously irrigated and suctioned free. Again hemostasis was checked and attended to and was excellent. Floseal was used in the axilla as well as along the upper flap. A 15 [place] round LUCAS drain was placed through the original drain incision and was secured in place with a nylon suture. The subcutaneous tissue was closed with 3-0 Vicryl. The skin was closed with running 4-0 Monocryl subcuticular stitch. Benzoin and Steri-Strips were applied. A dressing was applied, and the chest wall was wrapped with gauze and an Josh wrap. She tolerated the procedure without complication, was transferred in stable condition to the recovery room. Instrument needle and sponge counts were all correct. I attest to the content of the Intraoperative Record and any orders documented therein. Any exceptions are noted below.
--- NOTE | 2022-05-05 01:24 | Anesthesiology Progress Note ---
Date of Service May 05, 2022 Anesthesia Post Procedure Vital Signs Vital Signs: Temp Pulse Pulse Resp BP Pulse Ox O2 Del Method 05/04/22 22:27 81 18 108/71 05/04/22 21:45 71 16 91/61 L 100 Room Air 05/04/22 21:43 36.6 C 73 18 81/54 L 97 Room Air 05/04/22 19:34 36.9 C 90 16 88/57 L 97 Room Air 05/04/22 18:20 37.1 C 83 16 131/78 97 Room Air 05/04/22 17:35 37 C 81 16 130/77 95 Room Air 05/04/22 16:19 37.1 C 85 20 131/75 96 Room Air 05/04/22 15:56 37 C 89 18 133/73 97 Room Air 05/04/22 15:20 37.0 C 86 22 134/82 98 Room Air 05/04/22 15:05 98 H 14 147/79 H 97 Room Air 05/04/22 14:55 94 H 13 157/84 H 95 Room Air 05/04/22 14:45 98 H 14 160/84 H 95 Room Air 05/04/22 14:35 36.6 C 101 H 13 174/96 H 97 Room Air 05/04/22 14:25 107 H 24 162/88 H 100 Oxymask 05/04/22 14:15 99 H 17 125/79 97 Oxymask 05/04/22 14:09 36.3 C L 98 H 18 143/71 H 98 Oxymask 05/04/22 09:58 36.7 C 85 20 152/86 H 98 Room Air O2 Flow Rate 05/04/22 22:27 05/04/22 21:45 05/04/22 21:43 05/04/22 19:34 05/04/22 18:20 05/04/22 17:35 05/04/22 16:19 05/04/22 15:56 05/04/22 15:20 05/04/22 15:05 05/04/22 14:55 05/04/22 14:45 05/04/22 14:35 05/04/22 14:25 4 05/04/22 14:15 6 05/04/22 14:09 6 05/04/22 09:58 Pain Intensity Right Breast: Pain Intensity: 2 Transfer of Care Handoff Completed per policy Notes Mental Status: alert / awake / arousable Patient Amnestic to Procedure: Yes Nausea / Vomiting: adequately controlled Pain: adequately controlled Airway Patency, RR, SpO2: stable & adequate BP & HR: stable & adequate Hydration State: stable & adequate Anesthetic Complications: no major complications apparent and Pt Satisfied with anesthetic care Notes: The patient is awake and comfortable. Her vital signs are stable.
[2022-05-05] MEDS: LACTATED RINGER'S 1,000 ML IV SCH ×2 (02:17→12:31)
[2022-05-05] MEDS: MoRPHine SULFATE 2 MG/ML CARP IV PRN ×2 (04:54→10:09)
--- NOTE | 2022-05-05 07:12 | Surgery Progress Note ---
Date of Service May 05, 2022 Assessment & Plan (1) Hematoma: (2) Breast cancer, right: Plan Postoperative day 1 from right breast mastectomy/sentinel lymph node biopsy and subsequent return to OR with washout of hematoma and ligation of perforating branch arterial. Check labs, monitor blood pressure Advance diet as tolerated Aggressive pulmonary toilet with incentive spirometry We will hold Lovenox dose this morning due to hematoma Out of bed, ambulate Probable discharge tomorrow Admission and Anticipated Discharge Date Admission Date: May 04, 2022 Subjective Postoperative day 1 status post right breast mastectomy with sentinel lymph node biopsy, subsequent washout of the large hematoma and ligation of perforating vessel. She feels well this morning. She denies nausea and vomiting. Minimal pain. No fever or chills. Physical Exam Physical Exam: Right chest: Dressing clean dry and intact; minimal tenderness; small amount of serosanguineous fluid in the drain; minimal swelling. Results & Data ([facility]) Vital Signs (Past 12 Hours) Vital Signs Temp Pulse Pulse Resp BP BP Pulse Ox 05/05/22 06:11 37.1 C 80 16 114/69 99 05/05/22 04:16 36.7 C 84 16 105/67 99 05/05/22 03:10 37.0 C 80 16 104/70 99 05/05/22 01:40 86 16 132/71 96 05/05/22 01:30 94 H 16 134/85 92 05/05/22 01:25 101 H 16 133/83 99 05/05/22 01:17 104 H 18 155/72 H 96 05/05/22 02:30 36.5 C 80 16 121/75 96 05/05/22 02:00 37 C 78 16 124/74 96 05/04/22 22:27 81 18 108/71 05/04/22 21:45 71 16 91/61 L 100 05/04/22 21:43 36.6 C 73 18 81/54 L 97 05/04/22 19:34 36.9 C 90 16 88/57 L 97 O2 Del Method 05/05/22 06:11 Room Air 05/05/22 04:16 Room Air 05/05/22 03:10 Room Air 05/05/22 01:40 Room Air 05/05/22 01:30 Room Air 05/05/22 01:25 Room Air 05/05/22 01:17 Room Air 05/05/22 02:30 Room Air 05/05/22 02:00 Room Air 05/04/22 22:27 05/04/22 21:45 Room Air 05/04/22 21:43 Room Air 05/04/22 19:34 Room Air
[2022-05-05] MEDS: LEVOTHYROXINE SODIUM 88 MCG TABLET PO SCH (08:29)
[2022-05-05] MEDS: ceFAZolin 2000MG 2,000 MG/15 ML SYR IV SCH ×3 (08:29→23:22)
[2022-05-05] MEDS: oxyCODONE/ACETAMINOPHEN 5mg/325mg TAB PO PRN ×4 (08:43→23:21)
[2022-05-05 08:44] LABS: Basophils # (auto) 0.01 K/uL (0-0.2); Basophils % (auto) 0.1 %; Hematocrit (blood only) 31.5 % (34.1-44.9); Hemoglobin 10.6 g/dl (12.0-16.0); Immature Granulocytes # (auto) 0.05 K/uL (0.00-0.02); Immature Granulocytes % (auto) 0.3 %; Lymphocytes # (auto) 1.29 K/uL (1.2-3.4); Lymphocytes % (auto) 8.9 %; Mean Corpuscular Hemoglobin 28.6 pg (25.0-34.0); Mean Corpuscular Hgb Conc 33.7 g/dL (32.0-36.0); Mean Corpuscular Volume 85.1 fL (80.0-100.0); Mean Platelet Volume 9.5 fL (9.4-12.3); Monocytes # (auto) 0.67 K/uL (0.24-0.82); Monocytes % (auto) 4.6 %; Neutrophils # (auto) 12.51 K/uL (1.4-6.5); Neutrophils % (auto) 86.1 %; Platelet Count 269 K/uL (130-400); RDW Coefficient of Variation 13.6 % (11.5-14.5); RDW Standard Deviation 42.5 fL (36.4-46.3); White Blood Count 14.53 K/ul (4.8-10.8)
[2022-05-05] MEDS ORDERED: ENOXAPARIN INJ 40 MG/0.4 ML SYR SQ SCH (09:00)
[2022-05-05 09:15] LABS: BUN Creatinine Ratio 19.6 (10-20); Calcium 8.4 mg/dl (8.5-10.1); Creatinine Clr Calc Pharmacy 68.8 ml/min; Est GFR (Non-African American) 68.2 ml/min; Potassium 4.4 mmol/L (3.5-5.1)
[2022-05-05] MEDS: FLUoxetine HCL 20 MG CAP PO SCH (10:09)
[2022-05-05] MEDS: ATORVASTATIN 20 MG TAB PO SCH (20:05)
[2022-05-06] MEDS: LEVOTHYROXINE SODIUM 88 MCG TABLET PO SCH (06:03)
[2022-05-06] MEDS: oxyCODONE/ACETAMINOPHEN 5mg/325mg TAB PO PRN (06:03)
[2022-05-06 07:51] LABS: Basophils # (auto) 0.04 K/uL (0-0.2); Basophils % (auto) 0.4 %; Eosinophils # (auto) 0.03 K/uL (0-0.50); Eosinophils % (auto) 0.3 %; Hematocrit (blood only) 27.5 % (34.1-44.9); Hemoglobin 9.3 g/dl (12.0-16.0); Immature Granulocytes # (auto) 0.04 K/uL (0.00-0.02); Immature Granulocytes % (auto) 0.4 %; Lymphocytes # (auto) 2.09 K/uL (1.2-3.4); Lymphocytes % (auto) 20.4 %; Mean Corpuscular Hemoglobin 29.2 pg (25.0-34.0); Mean Corpuscular Hgb Conc 33.8 g/dL (32.0-36.0); Mean Corpuscular Volume 86.5 fL (80.0-100.0); Mean Platelet Volume 9.6 fL (9.4-12.3); Monocytes % (auto) 8.8 %; Neutrophils # (auto) 7.15 K/uL (1.4-6.5); Neutrophils % (auto) 69.7 %; Platelet Count 206 K/uL (130-400); RDW Coefficient of Variation 13.8 % (11.5-14.5); RDW Standard Deviation 43.5 fL (36.4-46.3); Red Blood Count 3.18 M/uL (3.93-5.22); White Blood Count 10.25 K/ul (4.8-10.8)
[2022-05-06] MEDS: FLUoxetine HCL 20 MG CAP PO SCH (07:54)
[2022-05-06] MEDS: MoRPHine SULFATE 2 MG/ML CARP IV PRN (07:54)
[2022-05-06] MEDS: ceFAZolin 2000MG 2,000 MG/15 ML SYR IV SCH (08:00)
== END 2022-05-06 13:38 | disposition home or self-care (01) ==
LOC: ASU 07:30 → 3E 07:30